=== PATIENT | female | born 1965 | race Caucasian/White ===

== ENCOUNTER 2018-12-01 11:50 | Emergency (ER) | payer BC ==
[2018-12-01 12:16] VITALS: BP 150/100
--- NOTE | 2018-12-02 15:08 | UC ---
Abdominal Pain Female HPI - HPI Summary HPI Summary: 53-year-old female who started having some abdominal cramping and left-sided abdominal pain with diarrhea several times today. She states she had a soft stool and then another softer one and then diarrhea. She's had no fever or chills however she does feel the pain is worse at this point in time. No nausea vomiting or diarrhea. - History of Current Complaint Chief Complaint: UCAbdominalPain Stated Complaint: DIARRHEA Time Seen by Provider: 12/01/18 12:29 Hx Obtained From: Patient ?: No Onset/Duration: Gradual Onset Timing: Constant Severity Initially: Mild Severity Currently: Moderate Pain Intensity: 7 Pain Scale Used: 0-10 Numeric Location: Discrete At: LUQ, Discrete At: LLQ, Epigastric Radiates: Yes Radiates to: Back - Radiates around the left abdomen Character: Aching, Cramping Aggravating Factor(s): Movement Alleviating Factor(s): Nothing Associated Signs and Symptoms: Positive: Diarrhea Allergies/Adverse Reactions: Allergies Allergy/AdvReac Type Severity Reaction Status Date / Time No Known Allergies Allergy Verified 12/01/18 12:16 Home Medications: Home Medications NK [No Home Medications Reported] 12/01/18 [History Confirmed 12/01/18] PMH/Surg Hx/FS Hx/Imm Hx Previously Healthy: Yes - Surgical History Surgical History: Yes Surgery Procedure, Year, and Place: Fibroidectomy, tonsilectomy - Social History Alcohol Use: Daily Substance Use Type: None Smoking Status (MU): Former Smoker Review of Systems All Other Systems Reviewed And Are Negative: Yes Gastrointestinal: Positive: Abdominal Pain, Diarrhea - Juan pain has been worsening as the day progresses, the diarrhea also has become more watery. Genitourinary: Positive: Negative Is Patient Immunocompromised?: No Physical Exam Triage Information Reviewed: Yes Appearance: Well-Appearing, Well-Nourished, Other: - No acute pain distress however she does move slowly because of the left-sided abdominal pain. Vital Signs: Initial Vital Signs Temp 98.3 F 12/01/18 12:10 Pulse 82 12/01/18 12:10 Resp 16 12/01/18 12:10 BP 150/100 12/01/18 12:10 Pulse Ox 100 12/01/18 12:10 Vital Signs Reviewed: Yes ENT: Positive: Normal ENT inspection Neck: Positive: Supple, Nontender, No Lymphadenopathy Respiratory: Positive: Lungs clear, Normal breath sounds, No respiratory distress, No accessory muscle use Cardiovascular: Positive: RRR, No Murmur, Pulses Normal, Brisk Capillary Refill Abdomen Description: Positive: No Organomegaly, Soft, Guarding - Mild discomfort on palpation to the left lower left upper abdomen and epigastric area with mild guarding. No rigidity or rebound. McBurney's point was nontender.. Negative: CVA Tenderness (R), CVA Tenderness (L), Distended, Hepatomegaly, McBurney's Point Tenderness, Peritoneal Signs Bowel Sounds: Positive: Present Musculoskeletal Exam: Normal Neurological Exam: Normal Psychological Exam: Normal Abd Pain Female Course/Dx - Course Course Of Treatment: I explained to the patient the importance of further evaluation and follow-up in the emergency room for the abdominal pain. Patient refused an ambulance ride. She stated she would rather drive because she wants to go to [place]. I reiterated to her the importance if she starts feeling poorly she is to pull off to the side of the road and call 911. Patient agreed with this plan of action. - Differential Dx/Diagnosis Provider Diagnosis: Abdominal pain Discharge - Sign-Out/Discharge Documenting (check all that apply): Patient Departure All imaging exams completed and their final reports reviewed: No Studies - Discharge Plan Condition: Fair Disposition: HOME-RECOMMEND TO ED Patient Education Materials: Acute Abdominal Pain (DC) Referrals: No Primary Care Phys,NOPCP [Primary Care Provider] - Additional Instructions: Do not eat or drink anything until you're evaluated in the emergency room. Go directly to your emergency room in [place], if you feel like you become lightheaded or any problems along the way then you are to pull alongside the road and call 911. - Billing Disposition and Condition Condition: FAIR Disposition: Home-Recommend to ED
== END 2018-12-01 12:54 | disposition home health service (06) ==
LOC: UCCORT 11:50
DX: R10.9 Unspecified abdominal pain (principal); Z87.891 Personal history of nicotine dependence
CPT/HCPCS: 99202; G0463